=== PATIENT | female | born 1945 | race Caucasian/White ===

== ENCOUNTER 2021-04-10 16:53 | Inpatient (IN) | payer BC, MEDICAID ==
[~2021-04-10] VITALS: Ht 165.1 cm; Wt 89.4 kg
[2021-04-10 20:11] LABS: BASOPHILS % 0.5 % (0.0-2.0); EOSINOPHILS % 2.2 % (0.0-5.0); HEMATOCRIT. 40.7 % (36.0-48.0); HEMOGLOBIN. 13.8 g/dL (12.0-16.0); LYMPHOCYTES % 27.7 % (20.0-50.0); MEAN CORPUSCULAR HEMOGLOBIN 32.5 pg (28.0-32.0); MEAN CORPUSCULAR VOLUME 95.6 fL (81.0-99.0); MONOCYTES % 8.5 % (2.0-8.0); NEUTROPHILS % 61.1 % (40.0-76.0); PLATELET 279 x1000/uL (130-400); RED BLOOD CELL COUNT 4.25 mill/uL (4.2-5.4); RED CELL DISTRIBUTION WIDTH 13.3 % (11.6-14.6)
[2021-04-10 20:17] LABS: CHLORIDE 106 mEq/L (98-107)
[2021-04-10 20:22] LABS: ETHANOL BLOOD < 10 mg/dL
[2021-04-10 20:26] LABS: CLARITY URINE CLEAR (CLEAR); COLOR URINE YELLOW (YELLOW); KETONES URINE NEGATIVE (NEGATIVE); LEUKOCYTE ESTERASE URINE 1+ (NEGATIVE); NITRITE URINE NEGATIVE (NEGATIVE); OCCULT BLOOD URINE NEGATIVE (NEGATIVE); PH URINE 6.5 (4.5-8.0); PROTEIN URINE NEGATIVE (NEGATIVE); SPECIFIC GRAVITY URINE 1.009 (1.005-1.030); UROBILINOGEN URINE 0.2 E.U./dL (0.2-1.0)
[2021-04-10 20:44] LABS: OPIATES URINE SCREEN NEGATIVE (NEGATIVE)
[2021-04-10 20:45] LABS: *AMPHETAMINES SCREEN URINE NEGATIVE (NEGATIVE); *BARBITURATES SCREEN URINE NEGATIVE (NEGATIVE); *BENZODIAZEPINES SCREEN URINE NEGATIVE (NEGATIVE); *COCAINE SCREEN URINE NEGATIVE (NEGATIVE); CANNABINOID URINE SCREEN NEGATIVE (NEGATIVE); METHADONE URINE SCREEN NEGATIVE (NEGATIVE); PHENCYCLIDINE URINE SCREEN NEGATIVE (NEGATIVE)
[2021-04-10] MEDS ORDERED: LEVOFLOXACIN 750MG PREMIX 150 ML IV ONE (21:00)
[2021-04-11] MEDS ORDERED: ONDANSETRON HCL 4MG/2ML INJ IV PRN (14:30)
[2021-04-11] MEDS ORDERED: LORAZEPAM 2MG/ML CPJ IV PRN (14:30)
[2021-04-11] MEDS ORDERED: RISPERIDONE 0.5MG TABLET PO SCH (16:00)
[2021-04-11] MEDS ORDERED: DIPHENHYDRAMINE 50MG/ML VIAL IV NR (17:30)
[2021-04-11] MEDS: HALOPERIDOL LACTATE 5MG/ML VIAL IM PRN (17:44)
[2021-04-11] MEDS ORDERED: MORPHINE SULFATE 2 MG/ML CPJ (NOT FOR IM USE) IV PRN (22:00)
[2021-04-11] MEDS ORDERED: NALOXONE HCL 0.4MG/ML VIAL IV PRN (22:00)
[2021-04-12 02:10] VITALS: BP 129/78
[2021-04-12 04:00] VITALS: BP 142/78
[2021-04-12 08:00] VITALS: BP 156/66
[2021-04-12] MEDS: CEFTRIAXONE 1,000 MG in DEXTROSE 5% WATER 50 ML IV SCH (10:10)
[2021-04-12 12:00] VITALS: BP 107/51
[2021-04-12] MEDS: HALOPERIDOL LACTATE 5MG/ML VIAL IM PRN (12:55)
[2021-04-12 16:00] VITALS: BP 129/66
[2021-04-12 20:00] VITALS: BP 134/68
[2021-04-13] VITALS: BP 112/62
[2021-04-13 04:00] VITALS: BP 131/61
[2021-04-13 08:00] VITALS: BP 130/76
[2021-04-13] MEDS: CEFTRIAXONE 1,000 MG in DEXTROSE 5% WATER 50 ML IV SCH (09:52)
[2021-04-13 12:00] VITALS: BP 136/76
[2021-04-13 16:00] VITALS: BP 132/72
[2021-04-13 20:00] VITALS: BP 136/90
[2021-04-13] MEDS: RISPERIDONE 1MG TABLET PO SCH (20:57)
[2021-04-14] VITALS: BP 108/63
[2021-04-14 04:00] VITALS: BP 107/55
[2021-04-14] MEDS: RISPERIDONE 1MG TABLET PO SCH ×2 (07:45→20:42)
[2021-04-14] MEDS ORDERED: HALOPERIDOL LACTATE 5MG/ML VIAL IM NR (07:45)
[2021-04-14] MEDS: CEFTRIAXONE 1,000 MG in DEXTROSE 5% WATER 50 ML IV SCH (09:00)
[2021-04-14] MEDS ORDERED: LORAZEPAM 2MG/ML CPJ IM PRN (14:30)
[2021-04-14 20:00] VITALS: BP 134/69
[2021-04-15] VITALS: BP 120/79
[2021-04-15 04:00] VITALS: BP 127/80
[2021-04-15] MEDS: CEFTRIAXONE 1,000 MG in DEXTROSE 5% WATER 50 ML IV SCH (09:00)
[2021-04-15] MEDS: RISPERIDONE 1MG TABLET PO SCH ×3 (09:47→21:53)
[2021-04-16 08:00] VITALS: BP 130/75
[2021-04-16] MEDS: CEFTRIAXONE 1,000 MG in DEXTROSE 5% WATER 50 ML IV SCH (09:00)
[2021-04-16] MEDS: RISPERIDONE 1MG TABLET PO SCH ×2 (09:34→20:53)
[2021-04-16 12:00] VITALS: BP 134/82
[2021-04-16 16:00] VITALS: BP 136/75
[2021-04-16 20:00] VITALS: BP 129/76
[2021-04-17] VITALS: BP 133/80
[2021-04-17 04:00] VITALS: BP 130/80
[2021-04-17 08:15] VITALS: BP 164/88
[2021-04-17] MEDS: RISPERIDONE 1MG TABLET PO SCH ×2 (08:51→20:09)
[2021-04-17 12:00] VITALS: BP 147/72
[2021-04-17 16:00] VITALS: BP 113/72
[2021-04-17 20:00] VITALS: BP 126/57
[2021-04-18] VITALS: BP 124/60
[2021-04-18 04:00] VITALS: BP 134/71
[2021-04-18 08:00] VITALS: BP 124/64
[2021-04-18] MEDS: RISPERIDONE 1MG TABLET PO SCH ×2 (09:11→21:05)
[2021-04-18 16:00] VITALS: BP 120/60
[2021-04-18 20:00] VITALS: BP 136/71
[2021-04-19 04:00] VITALS: BP 121/71
[2021-04-19 08:00] VITALS: BP 140/76
[2021-04-19] MEDS: RISPERIDONE 1MG TABLET PO SCH ×3 (09:25→21:35)
[2021-04-19 12:00] VITALS: BP 116/80
[2021-04-19 20:00] VITALS: BP 100/67
[2021-04-20] VITALS: BP 102/70
[2021-04-20 04:00] VITALS: BP 110/65
[2021-04-20 08:00] VITALS: BP 144/80
[2021-04-20] MEDS: RISPERIDONE 1MG TABLET PO SCH ×2 (09:00→21:00)
[2021-04-20 20:00] VITALS: BP 139/74
[2021-04-21 07:58] VITALS: BP 128/72
[2021-04-21] MEDS: RISPERIDONE 1MG TABLET PO SCH ×2 (09:37→21:13)
[2021-04-21] MEDS: ACETAMINOPHEN 325MG TABLET PO PRN (09:39)
[2021-04-21 12:00] VITALS: BP 104/56
[2021-04-21 16:00] VITALS: BP 124/65
[2021-04-21 20:00] VITALS: BP 126/71
[2021-04-22] VITALS: BP 139/79
[2021-04-22 08:00] VITALS: BP 123/80
[2021-04-22] MEDS: RISPERIDONE 1MG TABLET PO SCH ×2 (08:57→21:12)
[2021-04-22 12:00] VITALS: BP 106/69
[2021-04-22 16:22] VITALS: BP 103/67
[2021-04-22 20:00] VITALS: BP 121/58
[2021-04-23] VITALS: BP 118/64
[2021-04-23 04:00] VITALS: BP 125/68
[2021-04-23] MEDS: RISPERIDONE 1MG TABLET PO SCH ×2 (09:05→20:50)
[2021-04-23 20:00] VITALS: BP 110/56
[2021-04-24] VITALS: BP 136/66
[2021-04-24 04:00] VITALS: BP 130/65
[2021-04-24 08:00] VITALS: BP 106/50
[2021-04-24] MEDS: RISPERIDONE 1MG TABLET PO SCH ×2 (09:12→20:53)
[2021-04-24 12:00] VITALS: BP 104/45
[2021-04-24 16:00] VITALS: BP 100/53
[2021-04-24 20:34] VITALS: BP 130/80
[2021-04-25 00:35] VITALS: BP 126/73
[2021-04-25 04:34] VITALS: BP 112/68
[2021-04-25 08:00] VITALS: BP 123/67
[2021-04-25] MEDS: RISPERIDONE 1MG TABLET PO SCH ×2 (10:29→20:47)
[2021-04-25] MEDS: HALOPERIDOL LACTATE 5MG/ML VIAL IM PRN (11:01)
[2021-04-25 12:00] VITALS: BP 111/62
[2021-04-25 16:00] VITALS: BP 111/61
[2021-04-26] MEDS: RISPERIDONE 1MG TABLET PO SCH ×2 (08:37→21:37)
[2021-04-26] MEDS: ACETAMINOPHEN 325MG TABLET PO PRN (13:08)
[2021-04-26 20:00] VITALS: BP 155/85
[2021-04-27 04:00] VITALS: BP 127/75
[2021-04-27] MEDS: RISPERIDONE 1MG TABLET PO SCH ×2 (09:01→21:27)
[2021-04-27 20:00] VITALS: BP 128/83
[2021-04-27] MEDS: ACETAMINOPHEN 325MG TABLET PO PRN (21:52)
[2021-04-28] VITALS: BP 139/71
[2021-04-28 04:00] VITALS: BP 149/83
[2021-04-28 08:00] VITALS: BP 140/78
[2021-04-28] MEDS: RISPERIDONE 1MG TABLET PO SCH ×2 (08:57→21:32)
[2021-04-28 12:00] VITALS: BP 113/62
[2021-04-28] MEDS ORDERED: LORAZEPAM 1MG TABLET PO PRN (13:15)
[2021-04-28 16:00] VITALS: BP 129/79
[2021-04-28 20:00] VITALS: BP 131/74
[2021-04-29] VITALS: BP 134/86
[2021-04-29 04:00] VITALS: BP 127/70
[2021-04-29 08:00] VITALS: BP 128/80
[2021-04-29] MEDS: RISPERIDONE 1MG TABLET PO SCH ×2 (08:40→21:23)
[2021-04-29 12:00] VITALS: BP 101/50
[2021-04-29] MEDS: HALOPERIDOL LACTATE 5MG/ML VIAL IM PRN (15:56)
[2021-04-29 16:00] VITALS: BP 115/70
[2021-04-29 20:00] VITALS: BP 117/70
[2021-04-30 08:00] VITALS: BP 125/76
[2021-04-30] MEDS: RISPERIDONE 1MG TABLET PO SCH ×2 (09:30→20:36)
[2021-04-30 12:00] VITALS: BP 101/58
[2021-04-30 16:00] VITALS: BP 117/69
[2021-04-30 20:50] VITALS: BP 135/75
[2021-05-01 00:18] VITALS: BP 98/47
[2021-05-01 04:00] VITALS: BP 153/84
[2021-05-01 08:00] VITALS: BP 122/79
[2021-05-01] MEDS: RISPERIDONE 1MG TABLET PO SCH ×2 (09:00→21:28)
[2021-05-01 12:00] VITALS: BP 101/56
[2021-05-01 16:00] VITALS: BP 120/74
[2021-05-01 20:00] VITALS: BP 133/64
[2021-05-02] VITALS: BP 117/61
[2021-05-02] MEDS ORDERED: ONDANSETRON HCL 4MG TABLET PO PRN (01:07)
[2021-05-02 04:00] VITALS: BP 130/70
[2021-05-02] MEDS: RISPERIDONE 1MG TABLET PO SCH ×2 (09:11→20:58)
[2021-05-02 12:00] VITALS: BP 125/68
[2021-05-02 16:00] VITALS: BP 128/72
[2021-05-02 20:00] VITALS: BP 120/69
[2021-05-03] VITALS: BP 150/69
[2021-05-03 04:00] VITALS: BP 127/76
[2021-05-03 08:00] VITALS: BP 149/79
[2021-05-03] MEDS: RISPERIDONE 1MG TABLET PO SCH ×2 (09:05→21:47)
[2021-05-03 12:00] VITALS: BP 128/68
[2021-05-03 16:00] VITALS: BP 125/73
[2021-05-03 20:00] VITALS: BP 157/73
[2021-05-04 04:00] VITALS: BP 140/70
[2021-05-04 08:00] VITALS: BP 123/65
[2021-05-04] MEDS: RISPERIDONE 1MG TABLET PO SCH ×2 (09:44→21:54)
[2021-05-04 16:00] VITALS: BP 118/61
[2021-05-04] MEDS: LORAZEPAM 1MG TABLET PO PRN (21:55)
[2021-05-05 08:00] VITALS: BP 121/75
[2021-05-05] MEDS: RISPERIDONE 1MG TABLET PO SCH ×2 (09:41→21:27)
[2021-05-05 12:00] VITALS: BP 113/63
[2021-05-05 16:00] VITALS: BP 134/73
[2021-05-05] MEDS: LORAZEPAM 1MG TABLET PO PRN (18:26)
[2021-05-05 20:00] VITALS: BP 105/55
[2021-05-06] VITALS: BP 128/69
[2021-05-06 04:00] VITALS: BP 145/67
[2021-05-06] MEDS: RISPERIDONE 1MG TABLET PO SCH (09:41)
[2021-05-06 12:00] VITALS: BP 136/81
[2021-05-06 16:00] VITALS: BP 139/77
[2021-05-06 16:48] VITALS: BP 139/77
== END 2021-05-06 17:47 | DRG 690 ==
LOC: ER 16:53 → MICUSO 21:59 → 8WST 04-12 00:16 → 6EST 04-14 13:14
PROVIDERS: ADMIT Internal Medicine; ATTEND Internal Medicine
DX: N39.0 Urinary tract infection, site not specified (principal); R45.851 Suicidal ideations; F02.81 Dementia in other diseases classified elsewhere, unspecified severity, with behavioral disturbance; R45.1 Restlessness and agitation; I10 Essential (primary) hypertension; F10.20 Alcohol dependence, uncomplicated; G30.9 Alzheimer's disease, unspecified; Z20.822 Contact with and (suspected) exposure to COVID-19
CPT/HCPCS: 36415; 71045; 80053; 80305; 80307; 80320; 80329; 81003; 82962; 84443; 85025; 87426; 93005; 97161; 97166; 99285; J0696; J1200; J1630; J1956; J2060; J2405; J7060; Q0162; G0480